=== PATIENT | female | born 1970 | race Caucasian/White ===

== ENCOUNTER 2020-11-04 10:27 | Outpatient (CLI) | payer BC | END 2020-11-04 10:28 | disposition home or self-care (01) | LOC: RAD 10:27 | PROVIDERS: ATTEND Surgery | DX: K31.1 Adult hypertrophic pyloric stenosis (principal); K22.4 Dyskinesia of esophagus; R19.2 Visible peristalsis; Z98.890 Other specified postprocedural states | CPT/HCPCS: 74220 ==